=== PATIENT | female | born 1970 | race Caucasian/White ===

== ENCOUNTER 2022-01-29 17:54 | Observation (INO) ==
[2022-01-29] MEDS ORDERED: ONDANSETRON INJ 2 MG/ML 2 ML VIAL IV STA (18:12)
[2022-01-29] MEDS ORDERED: SODIUM CHLORIDE 0.9% 1000ML 1,000 ML IV STA (18:12)
--- NOTE | 2022-01-29 18:16 | Emergency Department Note ---
History of Present Illness General Chief complaint: Shortness of Breath/Dyspnea Stated complaint: AB PAIN FROM GALLBLADDER SURGERY Time Seen by Provider: 01/29/22 18:02 History of Present Illness 51-year-old female presents to the ED with a chief complaint of epigastric and right upper quadrant abdominal pain. She had a laparoscopic cholecystectomy today at 6 AM. She was discharged and started having increasing pain around 10 AM. The patient also has developed nausea and vomiting. Her pain has increased through the day. Anytime she takes oral medication she vomits. She was unable to tolerate the oxycodone that she had been discharged with. She did not have any nausea medicine to take. She was given IV fentanyl by EMS. Her symptoms have improved somewhat although she continues having nausea and right upper quadrant epigastric abdominal pain. She states that the pain radiates into the back. She did report vomiting up a little bit of blood. Home Medications Medication Instructions Recorded Confirmed Type calcium carbonate 500 mg-vitamin 1 tab PO QAM 11/01/18 01/29/22 History D3 2.5 mcg (100 unit) chewable tablet cyanocobalamin (vitamin B-12) 1,000 mcg sublingual DAILY #30 tabs 11/01/18 01/29/22 History 1,000 mcg sublingual tablet multivitamin (Multiple Vitamins 1 tab PO DAILY 11/01/18 01/29/22 History tablet) lisinopril 10 mg tablet 10 mg PO DAILY #30 tabs 07/25/21 01/29/22 Rx cyclobenzaprine 5 mg tablet 5 mg PO HS PRN muscle spasm or 08/18/21 01/29/22 Rx tension #30 tabs magnesium oxide 400 mg (241.3 mg 400 mg PO HS #30 tabs 08/18/21 01/29/22 Rx magnesium) tablet ferrous sulfate 325 mg (65 mg 325 mg PO Q OTHER DAY #30 tabs 09/04/21 01/29/22 Rx iron) tablet meloxicam 7.5 mg tablet 7.5 mg PO DAILY #30 tabs 11/24/21 01/29/22 Rx aspirin 81 mg capsule 81 mg PO DAILY 01/15/22 01/29/22 History riboflavin (vitamin B2) 400 mg 400 mg PO QAM 01/15/22 01/29/22 History tablet oxycodone-acetaminophen 5 mg-325 1 - 2 tab PO .q4-6h PRN pain, for 01/29/22 01/29/22 Rx mg tablet (Percocet) initial therapy, max 6 tabs per day #12 tabs pantoprazole 40 mg tablet,delayed 40 mg PO DAILY 01/29/22 01/29/22 History release (Protonix) Allergies Allergy/AdvReac Type Severity Reaction Status Date / Time Iodinated Contrast Media Allergy Severe Difficulty Verified 01/29/22 05:57 Breathing Past Med/Surg History Medical History Arthralgia of multiple joints Disc degeneration, lumbar History of blood clots limited information provided by daughter during pre op interview. unsure of cause. states she takes aspirin daily HTN (hypertension) Migraine hx Transient ischemic attack (TIA) ~November 2020 and ~January 2021. 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 Beliefs That Will Affect Care: None marital status: Current Living Situation: Spouse current occupational status: employed Feels Safe at Home: Yes caffeine: Yes Dental Care, Regularly: Yes Physical Activity Frequency: 3-4 Times per Week Seatbelt Use: always Sunscreen Use: Yes Assistive Devices: Glasses Review of Systems A total of 10 systems reviewed and were otherwise negative Physical Exam Vital Signs Vital Signs - 24 hr 01/29/22 18:30 01/29/22 18:30 01/29/22 19:24 Temperature 36.6 C Temperature Source Oral Pulse Rate 87 Pulse Rate [Finger] 75 Pulse Rhythm [Finger] Pulse Strength [Finger] Respiratory Rate 20 20 Respiratory Effort / Characteristics Spontaneous Non-Labored Spontaneous Respiratory Depth Normal Normal Respiratory Pattern Regular Blood Pressure 157/91 H Blood Pressure [Left Arm] 168/94 H Blood Pressure Mean 113 Blood Pressure Mean [Left Arm] 118 Blood Pressure Position Lying Pulse Oximetry 99 99 99 Oxygen Delivery Method Room Air Room Air Room Air Sepsis Recent Fever Within 48 Hours No Sepsis New/Unexplained Change in Mental Status N/A Sepsis Action Taken by Nursing No Action Required 01/29/22 21:00 01/29/22 21:03 Temperature Temperature Source Pulse Rate Pulse Rate [Finger] 79 120 H Pulse Rhythm [Finger] Regular Regular Pulse Strength [Finger] Normal Normal Respiratory Rate 19 22 Respiratory Effort / Characteristics Non-Labored Spontaneous Non-Labored Spontaneous Respiratory Depth Normal Normal Respiratory Pattern Regular Blood Pressure Blood Pressure [Left Arm] 134/77 125/77 Blood Pressure Mean Blood Pressure Mean [Left Arm] 96 93 Blood Pressure Position Pulse Oximetry 95 98 Oxygen Delivery Method Room Air Room Air Sepsis Recent Fever Within 48 Hours Sepsis New/Unexplained Change in Mental Status Sepsis Action Taken by Nursing CONSTITUTIONAL/VITAL SIGNS: Reviewed / noted above. GENERAL: Non-toxic in appearance. INTEGUMENTARY: Warm, dry, and [place]. HEAD: Normocephalic. EYES: without scleral icterus or trauma. ENT/OROPHARYNX: clear and moist. LYMPHADENOPATHY/NECK: Is supple without lymphadenopathy or meningismus. RESPIRATORY: Clear to auscultation bilaterally. No increased work of breathing. CARDIOVASCULAR: Regular rate and rhythm. GI/ABDOMEN: Soft and tender in the epigastric and right upper quadrant. No organomegaly or pulsatile mass. EXTREMITIES: Warm and well perfused. BACK: No CVA tenderness. NEUROLOGICAL: Intact without focal deficits. PSYCHIATRIC: normal affect. MUSCULOSKELETAL: Normally developed with good muscle tone. TRIAGE NURSING DOCUMENTATION REVIEWED. Course Administered Medications Promethazine HCl 12.5 mg/ (Sodium Chloride) 50.5 mls @ 204 mls/hr IV Q6H PRN PRN Reason: Nausea And Vomiting Stop: 02/28/22 21:02 Last Admin: 01/29/22 21:33 Dose: 204 mls/hr Documented By: LUZ Discontinued Medications Sodium Chloride (Nss 1000ml) 1,000 mls @ 999 mls/hr IV .Q1H1M STA Stop: 01/29/22 19:12 Last Infusion: 01/29/22 19:51 Dose: 0 mls/hr Documented By: Admin: 01/29/22 18:45 Dose: 999 mls/hr Documented By: EDDIE Morphine Sulfate (Morphine Sulfate 4 Mg/Ml 1 Ml Carp\Vial) 4 mg IV Q15M PRN PRN Reason: Pain Stop: 02/12/22 18:11 Last Admin: 01/29/22 20:05 Dose: 4 mg Documented By: Admin: 01/29/22 19:31 Dose: 4 mg Documented By: Admin: 01/29/22 18:44 Dose: 4 mg Documented By: EDDIE Ondansetron HCl (Ondansetron Inj 2 Mg/Ml 2 Ml Vial) 4 mg IV NOW STA Stop: 01/29/22 18:13 Last Admin: 01/29/22 18:44 Dose: 4 mg Documented By: EDDIE Promethazine HCl (Promethazine Hcl Inj 25 Mg/Ml 1 Ml Vial) Confirm Administered Dose 25 mg .ROUTE .STK-MED ONE Stop: 01/29/22 21:31 Last Admin: 01/29/22 21:33 Dose: 12.5 mg Documented By: LUZ Medical Decision Making Differential Diagnosis Differential includes pancreatitis, postsurgical pain, retained stone, bile leak, other. Medical Records Attestation: I reviewed the patient's medical records. Home Medications Current Medication List: was personally reviewed by me Laboratory Data Attestation: I reviewed the patient's lab results. Result diagrams: 01/29/22 18:04 01/29/22 18:04 Lab Results 01/29/22 01/29/22 Range/Units 18:04 18:04 WBC 10.15 (4.8-10.8) K/ul RBC 4.82 (3.93-5.22) M/uL Hgb 15.0 (12.0-16.0) g/dl Hct 42.0 (34.1-44.9) % MCV 87.1 (80.0-100.0) fL MCH 31.1 (25.0-34.0) pg MCHC 35.7 (32.0-36.0) g/dL RDW Std Deviation 37.3 (36.4-46.3) fL RDW Coeff of Ching 11.6 (11.5-14.5) % Plt Count 299 (130-400) K/uL MPV 10.4 (9.4-12.3) fL Immature Gran % (Auto) 0.2 % Neut % (Auto) 84.5 % Lymph % (Auto) 12.8 % [place] % (Auto) 2.4 % Eos % (Auto) 0.0 % Baso % (Auto) 0.1 % Neut # (Auto) 8.58 H (1.4-6.5) K/uL Lymph # (Auto) 1.30 (1.2-3.4) K/uL [place] # (Auto) 0.24 (0.24-0.82) K/uL Eos # (Auto) 0.00 (0-0.50) K/uL Baso # (Auto) 0.01 (0-0.2) K/uL Immature Gran # (Auto) 0.02 (0.00-0.02) K/uL Sodium 131 L (136-145) mmol/L Potassium TNP Chloride 100 (98-107) mmol/L Carbon Dioxide 17 L (21-32) mmol/L Anion Gap 14 H (3-11) BUN 11 (6-23) mg/dl Creatinine 0.72 (0.6-1.2) mg/dl Est Cr Clr Drug Dosing 88.6 ml/min Est GFR ( Amer) 110.8 ml/min Est GFR (Non-Af Amer) 95.6 ml/min BUN/Creatinine Ratio 15.3 (10-20) Glucose 145 H (70-99(Fasting)) mg/dl Calcium 9.2 (8.5-10.1) mg/dl Total Bilirubin 1.0 (0.2-1.0) mg/dl AST TNP ALT 33 (7-52) U/L Alkaline Phosphatase 41 (34-104) U/L Total Protein 7.0 (6.0-8.3) gm/dl Albumin 4.5 (3.4-5.0) gm/dl Globulin 2.5 (2.5-4.0) gm/dl Albumin/Globulin Ratio 1.8 (0.9-2) Lipase 30 (11-82) U/L Imaging Data Radiologist's Impression: Abdomen/Pelvis CT 01/29/22 18:33 CT OF THE ABDOMEN AND PELVIS WITHOUT CONTRAST CLINICAL HISTORY: Right upper quadrant and epigastric pain status post cholecystectomy earlier today. COMPARISON STUDY: Abdominal ultrasound June 27, 2021. TECHNIQUE: Axial images of the abdomen and pelvis were obtained without IV contrast. Images were reviewed in the axial, sagittal, and coronal planes. Automated exposure control was utilized for the study. A dose lowering technique was utilized adhering to the principles of ALARA. FINDINGS: There are trace bilateral pleural effusions. A small amount of pneumoperitoneum is likely postsurgical. There is no fluid collection within the operative bed. There is trace stranding within the cholecystectomy bed which is expected in the early postoperative setting. Borderline dilatation of the common bile duct is noted. A few hepatic cysts are present. The spleen, adrenal glands, kidneys and pancreas are unremarkable on this unenhanced exam. Trace fluid within the pelvis is noted. Bladder is distended. There is no evidence for a bowel obstruction. No bowel wall thickening is identified on this unenhanced examination. There is no peripancreatic stranding. No unexpected radiopaque foreign bodies are noted. Postoperative findings within the anterior abdominal wall are noted. IMPRESSION: 1. Expected postoperative findings following recent cholecystectomy including a small amount of pneumoperitoneum, trace stranding within the cholecystectomy bed, postoperative findings within the anterior abdominal wall and trace fluid within the pelvis. 2. Borderline biliary ductal dilatation. This could be correlated with liver function tests. 3. No bowel obstruction. 4. Several hepatic cysts. ACT 112: Negative or not required by law. Electronically signed by: Bonilla Rogel M.D. 01/29/2022 7:29 PM MDM Narrative 51-year-old female presents to the ED with worsening right upper quadrant abdominal pain and epigastric abdominal pain status post laparoscopic cholec ystectomy 6 AM this morning. She also reports nausea vomiting. IV fentanyl seem to help her pain. She was having some tenderness on my exam in the epigastric and right upper quadrant. CT scan of the abdomen pelvis did not show any acute findings. CBC and chemistry panel and pancreatic enzymes were unremarkable. The patient received multiple doses of IV morphine during her ED stay. She had at least 3 4 mg doses as well as some IV Zofran. Because of the ongoing pain, I spoke with the surgical service. They are going to bring the patient in for further evaluation and care. Impression & Plan Abdominal pain, acute, right upper quadrant Discharge Plan Visit Data Chief Complaint: Shortness of Breath/Dyspnea Stated Complaint: AB PAIN FROM GALLBLADDER SURGERY ED Provider: Baldev Holliday Discharge Problem: Abdominal pain, acute, right upper quadrant Patient Disposition: Being Evaluated by Surgeon Forms Stand Alone Forms: My [facility] Prescriptions Prescriptions: No Action multivitamin [Multiple Vitamins] tablet 1 tab PO DAILY ferrous sulfate 325 mg (65 mg iron) tablet 325 mg PO Q OTHER DAY Qty: 30 5RF Rx Instructions: Take with a glass of OJ or 500mg of vitamin C. magnesium oxide 400 mg (241.3 mg magnesium) tablet 400 mg PO HS Qty: 30 5RF cyclobenzaprine 5 mg tablet 5 mg PO HS PRN (Reason: muscle spasm or tension) Qty: 30 5RF calcium carbonate-vitamin D3 500-100 mg-unit tablet,chewable 1 tab PO QAM cyanocobalamin (vitamin B-12) 1,000 mcg tablet, sublingual 1,000 mcg SL DAILY Qty: 30 meloxicam 7.5 mg tablet 7.5 mg PO DAILY Qty: 30 1RF lisinopril 10 mg tablet 10 mg PO DAILY Qty: 30 5RF riboflavin (vitamin B2) 400 mg tablet 400 mg PO QAM aspirin 81 mg Capsule 81 mg PO DAILY pantoprazole [Protonix] 40 mg tablet,delayed release (DR/EC) 40 mg PO DAILY oxycodone-acetaminophen [Percocet] 5-325 mg tablet 1 - 2 tab PO .q4-6h PRN (Reason: pain, for initial therapy, max 6 tabs per day) Qty: 12 0RF Referrals Referrals: Ericka Huerta MD [Primary Care Provider] -
[2022-01-29 18:35] LABS: Basophils # (auto) 0.01 K/uL (0-0.2); Basophils % (auto) 0.1 %; Immature Granulocytes # (auto) 0.02 K/uL (0.00-0.02); Immature Granulocytes % (auto) 0.2 %; Lymphocytes % (auto) 12.8 %; Mean Corpuscular Hemoglobin 31.1 pg (25.0-34.0); Mean Corpuscular Hgb Conc 35.7 g/dL (32.0-36.0); Mean Corpuscular Volume 87.1 fL (80.0-100.0); Mean Platelet Volume 10.4 fL (9.4-12.3); Monocytes # (auto) 0.24 K/uL (0.24-0.82); Monocytes % (auto) 2.4 %; Neutrophils # (auto) 8.58 K/uL (1.4-6.5); Neutrophils % (auto) 84.5 %; Platelet Count 299 K/uL (130-400); RDW Coefficient of Variation 11.6 % (11.5-14.5); RDW Standard Deviation 37.3 fL (36.4-46.3); Red Blood Count 4.82 M/uL (3.93-5.22); White Blood Count 10.15 K/ul (4.8-10.8)
[2022-01-29] MEDS: MoRPHine SULFATE 4 MG/ML 1 ML CARP\\VIAL IV PRN ×3 (18:44→20:05)
[2022-01-29 18:49] LABS: Alanine Aminotransferase 33 U/L (7-52); Albumin Globulin Ratio 1.8 (0.9-2); Albumin Level 4.5 gm/dl (3.4-5.0); Alkaline Phosphatase 41 U/L (34-104); Anion Gap 14 (3-11); BUN Creatinine Ratio 15.3 (10-20); Blood Urea Nitrogen 11 mg/dl (6-23); Calcium 9.2 mg/dl (8.5-10.1); Carbon Dioxide 17 mmol/L (21-32); Chloride 100 mmol/L (98-107); Creatinine Clr Calc Pharmacy 88.6 ml/min; Est GFR (African American) 110.8 ml/min; Est GFR (Non-African American) 95.6 ml/min; Globulin 2.5 gm/dl (2.5-4.0); Glucose 145 mg/dl (70-99(Fasting)); Lipase 30 U/L (11-82); Sodium 131 mmol/L (136-145)
--- NOTE | 2022-01-29 19:31 | CT Scan Report ---
CT OF THE ABDOMEN AND PELVIS WITHOUT CONTRAST CLINICAL HISTORY: Right upper quadrant and epigastric pain status post cholecystectomy earlier today. COMPARISON STUDY: Abdominal ultrasound June 27, 2021. TECHNIQUE: Axial images of the abdomen and pelvis were obtained without IV contrast. Images were revi ewed in the axial, sagittal, and coronal planes. Automated exposure control was utilized for the kaye dy. A dose lowering technique was utilized adhering to the principles of ALARA. FINDINGS: There are trace bilateral pleural effusions. A small amount of pneumoperitoneum is likely p ostsurgical. There is no fluid collection within the operative bed. There is trace stranding within t he cholecystectomy bed which is expected in the early postoperative setting. Borderline dilatation of the common bile duct is noted. A few hepatic cysts are present. The spleen, adrenal glands, kidneys and pancreas are unremarkable on this unenhanced exam. Trace fluid within the pelvis is noted. Bladde r is distended. There is no evidence for a bowel obstruction. No bowel wall thickening is identified on this unenhanced examination. There is no peripancreatic stranding. No unexpected radiopaque foreig n bodies are noted. Postoperative findings within the anterior abdominal wall are noted. IMPRESSION: 1. Expected postoperative findings following recent cholecystectomy including a small amount of pneum operitoneum, trace stranding within the cholecystectomy bed, postoperative findings within the anteri or abdominal wall and trace fluid within the pelvis. 2. Borderline biliary ductal dilatation. This could be correlated with liver function tests. 3. No bowel obstruction. 4. Several hepatic cysts. ACT 112: Negative or not required by law. Electronically signed by: Bonilla Rogel M.D. 01/29/2022 7:29 PM
[2022-01-29] MEDS ORDERED: oxyCODONE/ACETAMINOPHEN 5mg/325mg TAB PO PRN ×2 (21:03)
[2022-01-29] MEDS ORDERED: ONDANSETRON INJ 2 MG/ML 2 ML VIAL IV PRN (21:03)
[2022-01-29] MEDS ORDERED: PROMETHAZINE HCL 12.5 MG in SODIUM CHLORIDE 0.9% 50 ML IV PRN (21:03)
[2022-01-29] MEDS ORDERED: MoRPHine SULFATE 2 MG/ML CARP IV PRN (21:03)
[2022-01-29] MEDS ORDERED: MoRPHine SULFATE 4 MG/ML 1 ML CARP\\VIAL IV PRN (21:03)
[2022-01-29] MEDS ORDERED: ACETAMINOPHEN 325 MG TAB PO PRN (21:03)
--- NOTE | 2022-01-29 21:03 | History & Physical Report ---
Date of Service January 29, 2022 Assessment & Plan (1) S/P laparoscopic cholecystectomy: Plan: Patient having significant pain and vomiting s/p lap cholecystectomy earlier today. Plan to admit overnight for pain control, ideally she will be stable to d/c in the AM. History of Present Illness Primary Care Provider: MD Imani Rodriguez presents to the ED today, s/p laparoscopic cholecystectomy with Dr. Gonzales earlier this morning. There were no intraoperative complications. She was discharged home, but once home she had significant pain, nausea and vomiting. She is accompanied by her daughter who reports her mother was vomiting blood, and did have brief LOC from her pain. She was taken to the ED where vitals have remained stable, other than high BP. She underwent CT with findings consistent with post-operative changes following her laparoscopic cholecystectomy. Her pain is now controlled with morphine. Allergies Allergy/AdvReac Type Severity Reaction Status Date / Time Iodinated Contrast Media Allergy Severe Difficulty Verified 01/29/22 05:57 Breathing Home Medications Medication Instructions Recorded Confirmed Type calcium carbonate 500 mg-vitamin 1 tab PO QAM 11/01/18 01/29/22 History D3 2.5 mcg (100 unit) chewable tablet cyanocobalamin (vitamin B-12) 1,000 mcg sublingual DAILY #30 tabs 11/01/18 01/29/22 History 1,000 mcg sublingual tablet multivitamin (Multiple Vitamins 1 tab PO DAILY 11/01/18 01/29/22 History tablet) lisinopril 10 mg tablet 10 mg PO DAILY #30 tabs 07/25/21 01/29/22 Rx cyclobenzaprine 5 mg tablet 5 mg PO HS PRN muscle spasm or 08/18/21 01/29/22 Rx tension #30 tabs magnesium oxide 400 mg (241.3 mg 400 mg PO HS #30 tabs 08/18/21 01/29/22 Rx magnesium) tablet ferrous sulfate 325 mg (65 mg 325 mg PO Q OTHER DAY #30 tabs 09/04/21 01/29/22 Rx iron) tablet meloxicam 7.5 mg tablet 7.5 mg PO DAILY #30 tabs 11/24/21 01/29/22 Rx aspirin 81 mg capsule 81 mg PO DAILY 01/15/22 01/29/22 History riboflavin (vitamin B2) 400 mg 400 mg PO QAM 01/15/22 01/29/22 History tablet oxycodone-acetaminophen 5 mg-325 1 - 2 tab PO .q4-6h PRN pain, for 01/29/22 01/29/22 Rx mg tablet (Percocet) initial therapy, max 6 tabs per day #12 tabs pantoprazole 40 mg tablet,delayed 40 mg PO DAILY 01/29/22 01/29/22 History release (Protonix) Past Med/Surg History Medical History Arthralgia of multiple joints Disc degeneration, lumbar History of blood clots limited information provided by daughter during pre op interview. unsure of cause. states she takes aspirin daily HTN (hypertension) Migraine hx Transient ischemic attack (TIA) ~November 2020 and ~January 2021. 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 Beliefs That Will Affect Care: None marital status: Current Living Situation: Spouse current occupational status: employed Feels Safe at Home: Yes caffeine: Yes Dental Care, Regularly: Yes Physical Activity Frequency: 3-4 Times per Week Seatbelt Use: always Sunscreen Use: Yes Assistive Devices: Glasses Review of Systems All systems reviewed & are unremarkable except as noted in HPI & below Physical Exam Physical Exam: Temp Pulse Resp BP Pulse Ox O2 Del Method 36.6 C 75 20 168/94 H 99 01/29/22 18:30 01/29/22 19:24 01/29/22 19:24 01/29/22 19:24 01/29/22 19:24 01/29/22 19:24 Constitutional: well developed and well nourished; no acute distress and + uncomfortable Eyes: PERRL, conjunctivae normal, anicteric sclerae Respiratory: normal respiratory effort, lungs clear to auscultation Cardiovascular: RRR, no murmur, no edema Gastrointestinal (Abdomen): Percussion/Palpation: abdomen soft; no guarding and abdomen not rigid soft, appropriately tender. incisions CDI, minimal drainage on gauze dressings. Skin: no rashes, warm and dry Results & Data ([facility]) Vital Signs (Past 12 Hours) Vital Signs Temp Pulse Pulse Resp BP BP Pulse Ox 01/29/22 19:24 75 20 168/94 H 99 01/29/22 18:30 99 01/29/22 18:30 36.6 C 87 20 157/91 H 99 O2 Del Method 01/29/22 19:24 Room Air 01/29/22 18:30 Room Air 01/29/22 18:30 Room Air Supervising Physician Co-Signing Physician Notes Patient seen and examined, labs and image reviewed, agree with above. Patient had laparoscopic cholecystectomy early this morning and while at home developed epigastric pain with nausea and vomiting. She was unable to keep anything down. On exam she is afebrile with stable vitals. Her abdomen is soft, appropriately tender to palpation. Incisions have minimal strikethrough with no evidence of infection. Labs are overall unremarkable. Her CT was personally viewed and interpreted by myself and shows normal postoperative changes from a laparoscopic cholecystectomy with some fluid and some air in the gallbladder fossa. No evidence of bowel injury. Her pain initially was unresponsive to morphine but is since improved. At this point we will admit her for overnight observation. Repeat labs in the a.m. If her symptoms persist then may order a HIDA scan. We will inform Dr. Gonzales in the morning. Coding Level of Care Code INT OBSERVATION CARE 50M LVL 2 Diagnoses S/P laparoscopic cholecystectomy Z90.49
[2022-01-29] MEDS ORDERED: PANTOprazole 40 MG TAB PO STA (21:10)
[2022-01-29] MEDS ORDERED: PROMETHAZINE HCL INJ 25 MG/ML 1 ML VIAL ONE (21:30)
--- NOTE | 2022-01-30 05:49 | Surgery Progress Note ---
Date of Service January 30, 2022 Assessment & Plan (1) S/P laparoscopic cholecystectomy: Plan: S/P Laparoscopic Cholecystectomy. POD#1. Admitted for observation due to pain and nausea. She's feeling much better. Will increase diet to full liquids. Plan Patient seen and examined, agree with above. POD #1 laparoscopic cholecystectomy admitted for pain control, CT was normal. She is feeling much better today, still with a little bit of epigastric pain after eating but this is significantly improved. On exam she is afebrile stable vitals. Abdomen is soft appropriate tender patient and dressings with slight strikethrough but otherwise no evidence of infection. We will advance diet as tolerated, discharged home this afternoon with plans to follow-up with Dr. Houston daily in the future. We will add antiemetics. Return precautions given. Admission and Anticipated Discharge Date Admission Date: January 29, 2022 Bob Diallo is feeling much better. Has great pain control. Tolerating clear liquids without nausea or emesis. VSS. She is passing flatus. Physical Exam Physical Exam: Temp Pulse Resp BP Pulse Ox O2 Del Method 36.8 C 87 16 133/84 98 01/29/22 23:50 01/29/22 23:50 01/29/22 23:50 01/29/22 23:50 01/29/22 23:50 01/29/22 23:50 Constitutional: WD/WN, vitals as above Respiratory: normal respiratory effort, lungs clear to auscultation Cardiovascular: RRR, no murmur, no edema Gastrointestinal (Abdomen): Inspection/Auscultation: abdomen normal to inspection and normal bowel sounds; abdomen not distended Percussion/Palpation: abdomen soft; abdomen nontender Results & Data ([facility]) Vital Signs (Past 12 Hours) Vital Signs Temp Pulse Pulse Resp BP BP Pulse Ox 01/29/22 23:50 36.8 C 87 16 133/84 98 01/29/22 23:25 84 16 131/75 99 01/29/22 23:00 83 16 131/75 99 01/29/22 21:03 120 H 22 125/77 98 01/29/22 21:00 79 19 134/77 95 01/29/22 19:24 75 20 168/94 H 99 01/29/22 18:30 99 01/29/22 18:30 36.6 C 87 20 157/91 H 99 O2 Del Method 01/29/22 23:50 Room Air 01/29/22 23:25 Room Air 01/29/22 23:00 Room Air 01/29/22 21:03 Room Air 01/29/22 21:00 Room Air 01/29/22 19:24 Room Air 01/29/22 18:30 Room Air 01/29/22 18:30 Room Air PG Care Time/CCT Total # of Minutes Spent Total Time Spent with Patient: Total time spent is greater than 50% in coordination of care (as documented) at patient's floor/unit and/or counseling patient: Coding Level of Care Code None Diagnoses S/P laparoscopic cholecystectomy Z90.49
--- NOTE | 2022-01-30 08:50 | Communication Note ---
Date of Service: January 30, 2022 Patient doing well. Reports no further abdominal pain, nausea/vomiting. Abdomen is soft, non distended, non tender. Steri-strips in place with scant shadowing on dressings. Will plan to advance diet and discharge to home if pain and symptoms remain controlled and diet tolerated. F/U with Dr. Gonzales as previously planned. A narcotic script was sent yesterday.
[2022-01-30] MEDS ORDERED: lisinopril 10 MG TAB PO SCH (09:00)
--- NOTE | 2022-01-30 09:03 | Discharge Summary ---
Date of Service January 30, 2022 Admission HPI Per Admitting Provider Imani presents to the ED today, s/p laparoscopic cholecystectomy with Dr. Gonzales earlier this morning. There were no intraoperative complications. She was discharged home, but once home she had significant pain, nausea and vomiting. She is accompanied by her daughter who reports her mother was vomiting blood, and did have brief LOC from her pain. She was taken to the ED where vitals have remained stable, other than high BP. She underwent CT with findings consistent with post-operative changes following her laparoscopic cholecystectomy. Her pain is now controlled with morphine. Principal Diagnosis s/p laparoscopic cholecystectomy post operative pain Discharge Exam awake/alert Constitutional no acute distress Gastrointestinal (Abdomen) Inspection/Auscultation: + abdominal surgical incision (steri-strips in place, scant dry drainage over bandages) Percussion/Palpation: abdomen soft; abdomen nontender Discharge Data Allergies Allergy/AdvReac Type Severity Reaction Status Date / Time Iodinated Contrast Media Allergy Severe Difficulty Verified 01/29/22 05:57 Breathing Ordered Studies 01/29/22 18:33 CT abd pelvis wo con Stat Hospital Course (1) Abdominal pain, acute, right upper quadrant: This is a 51y F who is s/p elective laparoscopic cholecystectomy with Dr. Gonzales on 01/29/22. The patient tolerated the procedure well, see op note for full details. She recovered in the PACU and was discharged to home in stable condition. In the afternoon/evening patient developed RUQ pain associated with nausea/vomiting prompting her to return to the ER for evaluation. A CT a/p was obtained that showed expected post surgical findings and nothing acute. LFTs, WBC, and Hbg stable. She was admitted for overnight observation for pain and symptom control. Throughout the evening and into the morning patient's pain was improved and well managed on oral medications. Her diet was advanced as tolerated and she had no further complaints of nausea/vomiting. Abdomen soft, non distended, non tender. On 01/30/22 she was deemed stable for discharge to home with plans to follow up with Dr. Gonzales as previously scheduled. (2) S/P laparoscopic cholecystectomy: Total Time Total Time Spent Total Time Spent (In Minutes): 10 Discharge Plan Discharge Items Patient Disposition: Home - Self-Care Reason For Visit: POST OP PAIN Discharge Diagnosis: cholecystectomy post operative pain management Activity: Per Instructions section Lifting: No more than 10 pounds Bathing Comment: may shower; no soaking in tubs/pools Exercise/Sports: Wait until after follow-up appointment Driving/Machine Use: no driving while taking narcotics for pain Non-emergency contact: Surgeon Call non-emergency contact if: you have any medication questions, your symptoms worsen, your pain is not controlled, your pain is concerning for you, you have a fever, your temperature is above 101.5, your wound has increased redness, your wound has increased drainage and your wound pain has increased Follow-up/Referrals: Ericka Huerta MD [Primary Care Provider] - Mike Gonzales MD, FACS [Surgeon] - 02/04/22 1:30 pm (Call to schedule follow up in clinic within 1 week) Diet: Regular Addtl Attending Provider Instructions: Pending Studies at Discharge: Yes Studies:: surgical pathology Stand-Alone Forms: My [facility], Smoking Cessation Medications and DC Order Prescriptions: New ondansetron HCl 4 mg tablet 4 mg PO Q8H PRN (Reason: nausea and vomiting) Qty: 8 0RF Continued multivitamin [Multiple Vitamins] tablet 1 tab PO DAILY ferrous sulfate 325 mg (65 mg iron) tablet 325 mg PO Q OTHER DAY Qty: 30 5RF Rx Instructions: Take with a glass of OJ or 500mg of vitamin C. magnesium oxide 400 mg (241.3 mg magnesium) tablet 400 mg PO HS Qty: 30 5RF cyclobenzaprine 5 mg tablet 5 mg PO HS PRN (Reason: muscle spasm or tension) Qty: 30 5RF calcium carbonate-vitamin D3 500-100 mg-unit tablet,chewable 1 tab PO QAM cyanocobalamin (vitamin B-12) 1,000 mcg tablet, sublingual 1,000 mcg SL DAILY Qty: 30 meloxicam 7.5 mg tablet 7.5 mg PO DAILY Qty: 30 1RF lisinopril 10 mg tablet 10 mg PO DAILY Qty: 30 5RF riboflavin (vitamin B2) 400 mg tablet 400 mg PO QAM aspirin 81 mg Capsule 81 mg PO DAILY pantoprazole [Protonix] 40 mg tablet,delayed release (DR/EC) 40 mg PO DAILY oxycodone-acetaminophen [Percocet] 5-325 mg tablet 1 - 2 tab PO .q4-6h PRN (Reason: pain, for initial therapy, max 6 tabs per day) Qty: 12 0RF Discharge Orders: Discharge Order (Routine); Ordered 01/30/22 Ordered By: Araceli Spicer Admission Data Admit Date/Time: 01/29/22 21:07 Attending Provider: Syd Boyce Admit Provider: Syd Boyce Primary Care Provider: Ericka Huerta V. Other Interventions: Discharge Summary Assessment (RN) Last Done: 01/30/22 09:19 Coding Level of Care Code D/C DAY MANAGEMENT <30 MINS Diagnoses Abdominal pain, acute, right upper quadrant R10.11 S/P laparoscopic cholecystectomy Z90.49
== END 2022-01-30 13:56 | disposition home or self-care (01) ==
LOC: 3W 17:54 → ED 17:54 → 3W 23:25